=== PATIENT | female | born 1995 | race Hispanic/Latino ===

== ENCOUNTER 2018-01-11 07:11 | Emergency (ER) | payer OTHER ==
[2018-01-11] MEDS: NS 1,000 ML IV (07:48)
[2018-01-11] MEDS: ONDANSETRON 4MG/2ML VIAL (J2405) IV (07:48)
[2018-01-11] MEDS: KETOROLAC 30 MG/ML VIAL (J1885) IV (07:49)
[2018-01-11 07:50] LABS: BASO # 0.1 10^3/uL (0.0-0.2); BASO % 0.5 % (0.0-1.0); EOS % 0.3 % (0.0-3.0); HEMATOCRIT 41.8 % (36.0-47.0); HEMOGLOBIN 14.8 g/dl (12.0-15.5); IMMATURE GRANULOCYTE % 0.4 % (0-3.0); LYMPH # 1.8 10^3/uL (1.5-6.5); LYMPH % 17.5 % (24.0-44.0); MEAN CORPUSCULAR HEMOGLOBIN 32.9 pg (27.0-33.0); MEAN CORPUSCULAR HGB CONC 35.4 g/dl (32.0-36.5); MEAN CORPUSCULAR VOLUME 92.9 fl (80.0-96.0); MONO # 0.8 10^3/uL (0.0-0.8); MONO % 7.5 % (0.0-5.0); NEUTROPHILS # 7.4 10^3/uL (1.8-7.7); NEUTROPHILS % 73.8 % (36.0-66.0); PLATELET COUNT, AUTOMATED 262 10^3/uL (150-450); RED CELL DISTRIBUTION WIDTH 11.4 % (11.5-14.5)
[2018-01-11 08:04] LABS: CONTROL LINE UCG INT CTR LINE PRESENT; INR 0.89; PROTHROMBIN TIME 12.1 SECONDS (12.4-14.5); URINE PREG TEST NEGATIVE (NEGATIVE)
[2018-01-11 08:14] LABS: KETONE, URINE AUTO RFX NEGATIVE (NEGATIVE); LEUKOCYTE ESTERASE UR AUTO RFX NEGATIVE (NEGATIVE); MUCUS, URINE RFX SMALL (NEGATIVE); NITRITE, URINE AUTO RFX NEGATIVE (NEGATIVE); RBC, URINE AUTO RFX 2 /HPF (0-3); SPECIFIC GRAVITY UR AUTO RFX 1.025 (1.002-1.035); SQUAM EPITHELIAL CELL UR AURFX 2 /HPF (0-6); WBC, URINE AUTO RFX 1 /HPF (0-3)
[2018-01-11 08:24] LABS: ALBUMIN 4.1 GM/DL (3.2-5.2); ALKALINE PHOSPHATASE 47 U/L (45-117); ALT/SGPT 76 U/L (12-78); AMYLASE 34 U/L (25-115); ANION GAP 7 MEQ/L (8-16); AST/SGOT 37 U/L (7-37); BILIRUBIN,DIRECT 0.1 MG/DL (0.0-0.2); BILIRUBIN,TOTAL 0.6 MG/DL (0.2-1.0); BLOOD UREA NITROGEN 10 MG/DL (7-18); CARBON DIOXIDE LEVEL 28 MEQ/L (21-32); CHLORIDE LEVEL 104 MEQ/L (98-107); CREATININE FOR GFR 0.66 MG/DL (0.55-1.30); GLOMERULAR FILTRATION RATE > 60.0 (>60); GLUCOSE, FASTING 97 MG/DL (70-100); LIPASE 157 U/L (73-393); POTASSIUM SERUM 3.9 MEQ/L (3.5-5.1); SODIUM LEVEL 139 MEQ/L (136-145); TOTAL PROTEIN 8.2 GM/DL (6.4-8.2)
[2018-01-11] MEDS ORDERED: ISOVUE-370 76% 100ML VIAL (Q9967) As Ordered (08:40)
[2018-01-11] MEDS: GASTROGRAFIN SOLUTION 30ML PO ×2 (08:54→09:21)
[2018-01-11 12:37] LABS: CHLAMYDIA DNA AMPLIFICATION NEGATIVE (NEGATIVE); GC DNA AMPLIFICATION NEGATIVE (NEGATIVE)
== END 2018-01-11 11:21 | disposition home or self-care (01) ==
LOC: M ED 07:11
DX: K52.9 Noninfective gastroenteritis and colitis, unspecified (principal); Z87.42 Personal history of other diseases of the female genital tract
CPT/HCPCS: Q9963

== ENCOUNTER 2018-02-16 22:19 | Emergency (ER) | payer OTHER ==
[2018-02-17] MEDS: AUGMENTIN 875 MG TAB PO (01:21)
== END 2018-02-17 01:15 | disposition home or self-care (01) ==
LOC: M ED 22:19
DX: H66.91 Otitis media, unspecified, right ear (principal)
CPT/HCPCS: 99282

== ENCOUNTER 2019-08-10 11:09 | Inpatient (IN) | payer OTHER ==
[~2019-08-10] VITALS: Ht 149.9 cm; Wt 64.6 kg
[~2019-08-10 11:09] MED LIST: AUGM500T34 PO; FLAG500T PO; NICOTINE 21MG/24HR 1 EA TRANSDERMAL TD SCH
[2019-08-10 12:26] LABS: HEMOGLOBIN 14.8 g/dl (12.0-15.5); MEAN CORPUSCULAR HEMOGLOBIN 32.7 pg (27.0-33.0); MEAN CORPUSCULAR HGB CONC 34.4 g/dl (32.0-36.5); MEAN CORPUSCULAR VOLUME 94.9 fl (80.0-96.0); PLATELET COUNT, AUTOMATED 267 10^3/uL (150-450); RED BLOOD COUNT 4.53 10^6/uL (4.00-5.40)
[2019-08-10 12:43] LABS: AMPHETAMINES LEVEL URINE NEGATIVE (NEGATIVE); BARBITURATES URINE NEGATIVE (NEGATIVE); BENZODIAZEPINES URINE NEGATIVE (NEGATIVE); CANNABINOIDS URINE NEGATIVE (NEGATIVE); COCAINE METABOLITE URINE NEGATIVE (NEGATIVE); METHADONE URINE NEGATIVE (NEGATIVE); OPIATES URINE NEGATIVE (NEGATIVE); PHENCYCLIDINE URINE NEGATIVE (NEGATIVE)
[2019-08-10 12:50] LABS: HCG, SERUM QUALITATIVE NEGATIVE (NEGATIVE)
[2019-08-10] MEDS ORDERED: LEVO75TA34 PO (12:50)
[2019-08-10] MEDS ORDERED: PRAZ2CAP PO (12:50)
[2019-08-10] MEDS ORDERED: CELE100C PO (12:50)
[2019-08-10] MEDS ORDERED: HYDR-643 PO (12:50)
[2019-08-10] MEDS ORDERED: TRAZ-163 PO (12:50)
[2019-08-10] MEDS ORDERED: DOXY100T PO (12:50)
[2019-08-10 12:54] LABS: ACETAMINOPHEN LEVEL < 2.0 UG/ML (10.0-30.0); ALT/SGPT 67 U/L (12-78); BILIRUBIN,DIRECT < 0.1 MG/DL (0.0-0.2); BILIRUBIN,TOTAL 0.3 MG/DL (0.2-1.0); BLOOD UREA NITROGEN 10 MG/DL (7-18); CALCIUM LEVEL 9.5 MG/DL (8.5-10.1); CARBON DIOXIDE LEVEL 26 MEQ/L (21-32); CHLORIDE LEVEL 105 MEQ/L (98-107); CREATININE FOR GFR 0.72 MG/DL (0.55-1.30); ETHYL ALCOHOL (ETHANOL) < 0.003 % (0.000-0.010); GLOMERULAR FILTRATION RATE > 60.0 (>60); GLUCOSE, FASTING 112 MG/DL (70-100); SALICYLATE LEVEL < 1.7 MG/DL (5.0-30.0); SODIUM LEVEL 139 MEQ/L (136-145); TOTAL PROTEIN 7.6 GM/DL (6.4-8.2)
[2019-08-10] MEDS ORDERED: MAALOX 30 ML SUSP *UDC PO PRN (13:45)
[2019-08-10] MEDS ORDERED: traZODone 50 MG TAB PO PRN (13:45)
[2019-08-10] MEDS ORDERED: ACETAMINOPHEN TAB 650MG DOSE (2X325MG) PO PRN (13:45)
[2019-08-10] MEDS ORDERED: MOM 30ML SUSPENSION UDC PO PRN (13:45)
[2019-08-10 14:44] VITALS: BP 114/72
[2019-08-10] MEDS ORDERED: DOXYCYCLINE HYCLATE 100 MG TAB PO ONE (15:45)
[2019-08-10] MEDS ORDERED: hydrOXYzine 10 MG TAB PO PRN (15:45)
[2019-08-10] MEDS: CelecoXIB (CeleBREX) 100 MG CAP PO SCH (16:59)
[2019-08-10 18:00] VITALS: BP 109/69
[2019-08-10] MEDS: traZODone 100 MG TAB PO PRN (20:50)
[2019-08-10] MEDS: PRAZOSIN 1 MG CAP PO SCH (20:50)
[2019-08-11] MEDS: LEVOTHYROXINE 75MCG TABLET (0.075MG) PO SCH (06:09)
[2019-08-11 06:20] VITALS: BP 110/62
[2019-08-11] MEDS: DOXYCYCLINE HYCLATE 100 MG TAB PO SCH ×2 (09:18→20:27)
[2019-08-11] MEDS: CelecoXIB (CeleBREX) 100 MG CAP PO SCH (09:18)
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
[2019-08-11] MEDS ORDERED: hydrOXYzine 25 MG TAB PO PRN (12:15)
[2019-08-11 18:00] VITALS: BP 124/78
[2019-08-11] MEDS: PRAZOSIN 1 MG CAP PO SCH (20:51)
[2019-08-11] MEDS: traZODone 100 MG TAB PO PRN (20:51)
[2019-08-12] MEDS: LEVOTHYROXINE 75MCG TABLET (0.075MG) PO SCH (06:02)
[2019-08-12 06:46] VITALS: BP 101/58
[2019-08-12 07:59] LABS: FREE THYROXINE INDEX 2.5 % (1.3-4.8); THYROID STIMULATING HORMONE 8.38 uIU/ML (0.358-3.740); THYROXINE (T4) 7.8 UG/DL (4.5-12.0)
[2019-08-12] MEDS: CelecoXIB (CeleBREX) 100 MG CAP PO SCH (09:50)
[2019-08-12] MEDS: DOXYCYCLINE HYCLATE 100 MG TAB PO SCH ×2 (09:50→20:43)
--- NOTE | 2019-08-12 10:31 | HPE ---
DATE OF ADMISSION: 08/11/2019 HISTORY OF PRESENT ILLNESS: Please refer to psychiatric history and evaluation for further details on this admission. This examination and history is intended for medical issues, which may need treatment, followup or consultation on this 23-year-old female. ALLERGIES: No known allergies. PRIMARY CARE PROVIDER: [facility]. SOCIAL HISTORY: She is a soldier, active duty at [employer]. She is currently from her but is involved in another relationship. ETOH: Rarely, once every 3 months, if that. Smokes: None. Recreational drug use: None. FAMILY HISTORY: Reviewed with patient and is noncontributary, PAST MEDICAL HISTORY: 1. Hypothyroidism. She states that she was initially placed on 25 mcg of levothyroxine and then they bumped her up to 100, which was too high. In the last several weeks, they have placed her at 50 mcg. 2. Anxiety. 3. Posttraumatic stress disorder (PTSD). 4. Low back pain. She follows with [facility]. She has been told that she has some type of a cyst on her vertebra, good response with Celebrex. PAST SURGICAL HISTORY: 1. [place] teeth extraction. 2. Hysteroscopy on 07/31/2019. She is following this with 7 days of doxycycline 100 mg twice a day, which she has been continuing to receive. HOME MEDICATIONS: - doxycycline 100 mg by mouth twice a day for 7 days LABORATORY STUDIES: CBC is normal. White count is 7.0, hemoglobin 14.4, hematocrit 42.0. Electrolytes were normal. Sodium 138, potassium 3.9, chloride 104, CO2 of 26, BUN 13, creatinine 0.68, nonfasting glucose 101. TSH was 6.95. She is currently on levothyroxine 75 mcg. We will get a thyroid profile. She states that at [facility] they had started her on 25, went to 50, then went up to 100 and that was too much so they switched her back to 75 mcg. She may end up on 87.5. We will get a thyroid profile, it may just have been elevated secondary to stress. REVIEW OF SYSTEMS: 11 systems review was done and was unremarkable, other than chronic back pain, for which she takes Celebrex and goes to the [facility] for. PHYSICAL EXAMINATION: GENERAL: 23-year-old cooperative female in no acute distress. Blood pressure 109/69, pulse 88, respirations 16, temperature 97. The patient is alert and oriented times three. HEENT: Pupils are equal and reactive to light. Extraocular muscles intact. Sclerae clear. Conjunctivae normal. No facial asymmetry. Pharynx, gums and tongue pink and moist. Tongue is midline. NECK: Supple without lymphadenopathy, thyromegaly or goiter. CHEST: Clear to auscultation without wheeze or retraction. HEART: Regular. ABDOMEN: Benign. Bowel sounds positive. GENITOURINARY/RECTAL: Not done. EXTREMITIES: Equal strength, full range of motion. No clubbing, cyanosis, and edema. Peripheral pulses equal and palpable bilaterally. SKIN: Warm and dry. IMPRESSION/PLAN: 1. Psychiatric plan per psychiatry. 2. Deep vein thrombosis (DVT) prophylaxis with early ambulation. 3. Hypothyroidism with slightly elevated TSH. We will get a thyroid profile, may need dose adjustment. 4. Chronic back pain. Continue to followup with [facility]. Continues on Celebrex with good response. 5. Status post hysteroscopy on 07/31/2019. Continue on current course and finishing of doxycycline 100 mg by mouth twice a day. MTDD
[2019-08-12 17:07] VITALS: BP 111/74
[2019-08-12] MEDS: traZODone 100 MG TAB PO PRN (20:43)
[2019-08-12] MEDS: PRAZOSIN 1 MG CAP PO SCH (20:46)
--- NOTE | 2019-08-13 00:39 | MHIPN ---
DATE: 08/12/2019 The patient states "I feel really good." She says she slept good. She is not suicidal. MENTAL STATUS EXAMINATION: She is alert and oriented times 3. Eye contact is fairly good. There is no formal thought disorder noted. She is verbally spontaneous. She says mood is good. Affect is full range and appropriate. She is not psychotic. She denies suicidal or homicidal ideations. Concentration is fair. Memory intact. Insight and judgment are fair. DIAGNOSES: 1. Adjustment disorder with depressed mood. Rule out other specified depressive disorder. 2. History of posttraumatic stress disorder (PTSD). TREATMENT AND PLAN: At this point, we will continue to monitor the patient for continued elevation and stabilization of her mood continue resolution of suicidal ideations; and when stable, we will discharge her with appropriate followup.
[2019-08-13] MEDS: LEVOTHYROXINE 75MCG TABLET (0.075MG) PO SCH (05:56)
[2019-08-13 06:51] VITALS: BP 117/69
[2019-08-13] MEDS: CelecoXIB (CeleBREX) 100 MG CAP PO SCH (09:06)
[2019-08-13] MEDS: DOXYCYCLINE HYCLATE 100 MG TAB PO SCH ×2 (09:06→20:49)
[2019-08-13 15:38] VITALS: BP 106/63
[2019-08-13 21:12] VITALS: BP 131/94
[2019-08-13] MEDS: traZODone 100 MG TAB PO PRN (21:12)
[2019-08-13] MEDS: PRAZOSIN 1 MG CAP PO SCH (21:12)
[2019-08-14] MEDS: LEVOTHYROXINE 75MCG TABLET (0.075MG) PO SCH (05:28)
[2019-08-14 06:04] VITALS: BP 119/76
--- NOTE | 2019-08-14 06:55 | MHIPN ---
DATE OF SERVICE: 08/13/2019 The patient today states that she is feeling very good. She says she slept good. She has no complaints and she is not suicidal. MENTAL STATUS EXAMINATION: Eye contact is good. She is verbally spontaneous. No formal thought disorder noted. Mood is good. Affect full range and appropriate. She is not psychotic, suicidal or homicidal. Concentration and memory is good. Insight and judgment good. DIAGNOSES: Adjustment disorder with depressed mood. Posttraumatic stress disorder (PTSD). TREATMENT PLAN: We will continue to monitor the patient. Will continue elevation and stabilization of her mood and continue resolution of suicidal ideations. KANDACE
[2019-08-14] MEDS: DOXYCYCLINE HYCLATE 100 MG TAB PO SCH (08:56)
[2019-08-14] MEDS: CelecoXIB (CeleBREX) 100 MG CAP PO SCH (08:56)
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
[2019-08-16] MEDS ORDERED: HYDR-643 PO (08:43)
[2019-08-16] MEDS ORDERED: TRAZ-163 PO (08:43)
[2019-08-16] MEDS ORDERED: PRAZ2CAP PO (08:43)
== END 2019-08-14 12:15 | disposition home or self-care (01) | DRG 882 ==
LOC: M ED 11:09 → M ED INP 13:44 → M PSY 14:15
PROVIDERS: ADMIT Psychiatry & Neurology Psychiatry; ATTEND Psychiatry & Neurology Psychiatry
DX: F43.23 Adjustment disorder with mixed anxiety and depressed mood (principal); R45.851 Suicidal ideations; F43.10 Post-traumatic stress disorder, unspecified; Z79.899 Other long term (current) drug therapy; E03.9 Hypothyroidism, unspecified; M54.5 Low back pain

== ENCOUNTER 2020-05-16 08:10 | Inpatient (IN) | payer OTHER ==
[~2020-05-16] VITALS: Ht 149.9 cm; Wt 70.4 kg
[2020-05-16] VITALS (42 sets, daily range): BP systolic 110–180; BP diastolic 57–101
[~2020-05-16 08:10] MED LIST changes: +CELE100C PO; +DOXY100T PO; +HYDR-643 PO; +LEVO75TA34 PO; -NICOTINE 21MG/24HR 1 EA TRANSDERMAL TD SCH; +PRAZ2CAP PO; +TRAZ-257 PO
--- NOTE | 2020-05-16 09:21 | HPEPDOC ---
Obstetrical History & Physical General Date of Admission May 16, 2020 at 08:51 History of Present Illness 24yo at 38+5wks presented to L&D for c/o ctx's that started overnight but w orsened after she thinks her water broke upon getting out of bed at 0700. She denies VB or DFM. Chief Complaint: Contractions, term, LOF, term Information Provided By: Patient Age: 24 : 1 Care Care: Good Care Dating Final EDC: May 25, 2020 Final EDC for Daily Update: May 25, 2020 Final EDC by: LMP (c/w 10w3d u/s) LMP: Jul 23, 2019 EGA at Admission: 38 (+5) Antepartum Course Diagnos(e)s Hypothyroidism Depression Anxiety h/o SI in with inpatient psych admission GBS positive Height (inches): 59 Pre- weight (lbs.): 141 Admission Weight (lbs.): 154 Change in Weight (lbs.): 13 Past Medical History Past Obstetrical History : Past Obstetrical History: [employer] History: No pertinent history Past Medical History Medical History Hypothyroidism Anxiety Depression h/o SI in Surgical History: Denies/None Family History Significant Family History: Diabetes Social History Marital Status: Single (FOB involved) Psychosocial History: Anxiety, Depression, Prior suicide attempt * Smoker: non-smoker Alcohol: Denies Drugs: denies Abuse Violence Screening Have you been hit/kicked/slapp: No Have you been sexually assault: No Imunizations Tdap status: current ([id number]) Influenza Status: current () Allergies Coded Allergies: No Known Allergies (Unverified , 08/10/19) Medications Scheduled Levothyroxine Sodium (Levothyroxine Sodium) 100 Mcg Tablet, 100 MCG PO DAILY No.137/Iron/Folic Acd ( Vitamin Tablet) 1 Each Tablet, 1 TAB PO DAILY Physical Examination Physical Examination GENERAL: Alert and oriented times three. HEENT: NC/AT, airway patent and self-maintained ABDOMEN: Gravid and non-tender to touch. FETUS: Is vertex (VTX) by sterile vaginal examination (SVE), fetus is vertex (VTX) by Emery. CARDS: well-perfused, no edema RESP: no exaggerated respiratory effort appreciated SVE: 3/c/-2, membranes palpated to be intact. Neg pooling, neg valsalva on speculum exam. Bloody-show with SVE. EXTREMITIES: No edema. Vital Signs/I&O Normotensive, afebrile. NST cat I but no accels noted [place]: ctx's q2-3min Laboratory Data Urine Culture: No Growth Pertinent Laboratoy Data Blood Type: AB+ RBC Antibody Screen: Negative HIV: Negative Hepatitis B: Negative Rapid Plasma Reagin: Nonreactive Rubella: Immune Varicella: Immune Chlamydia/Gonorrhea: Negative Group B Streptococcus: Positive Quad Screen Test: Declined Cystic Fibrosis: Negative Glucose Tolerance Test: 171 (unable to tolerate 3hr, 2 weeks of QID FS normal) Anatomy Ultrasound Ultrasound Date: Jan 08, 2020 Placenta Location: Anterior Normal Anatomy: Yes Placenta Previa: No Other Ultrasounds [id number] - Growth scan at 34+5wks with EFW at 65th percentile Vaginal Examination Dilation: 3 cm Effacement: 100% Station: -1 Cervical Consistency: Soft Cervical Position: Anterior Presentation: Cephalic presentation Assessment Heart Rate (FHR): 140 Variability: Moderate Accelerations: None Decelerations: None Tocometer Contractions: Yes Frequency: regular, every 2-5 min. Duration: greater than 60 seconds Strength: palpated as moderate Multi-drug resistant Organism: No history of MDRO Assessment/Plan Assessment 24yo at 38+5wks presenting for c/o ctx's and LOF. Membranes appreciated to be intact with negative nitrazine, neg pooling, neg valsalva, and palpation of intact membranes on exam. SVE 3/c/-1 with bloody show noted. Patient in labor. EFW 3300g. GBS positive. Plan Admit to L&D Mortising Machine Operator and consent CBC, T&S Synthroid 100mcg PO daily (first dose now) PCN for GBS positive status Patient may have epidural if desired Continuous EFM until delivery Clear liquid diet until delivery Consider AROM for augmentation once patient comfortable with epidural Plan for expectant ZIA KING DO May 16, 2020 09:21
[2020-05-16] MEDS ORDERED: LEVO100T5 PO (09:28)
[2020-05-16] MEDS ORDERED: PRENTAB9 PO (09:28)
[2020-05-16] MEDS ORDERED: PENICILLIN G POTASSIUM 5 MU VIAL As Ordered ONE (09:39)
[2020-05-16 10:16] LABS: BASO % 0.5 % (0.0-1.0); EOS % 0.5 % (0.0-3.0); HEMATOCRIT 34.3 % (36.0-47.0); HEMOGLOBIN 12.4 g/dl (12.0-15.5); LYMPH # 1.3 10^3/uL (1.5-5.0); LYMPH % 19.4 % (24.0-44.0); MEAN CORPUSCULAR HEMOGLOBIN 32.7 pg (27.0-33.0); MEAN CORPUSCULAR HGB CONC 36.2 g/dl (32.0-36.5); MEAN CORPUSCULAR VOLUME 90.5 fl (80.0-96.0); MONO # 0.5 10^3/uL (0.0-0.8); MONO % 8.3 % (0.0-5.0); NEUTROPHILS # 4.6 10^3/uL (1.5-8.5); NEUTROPHILS % 70.5 % (36.0-66.0); PLATELET COUNT, AUTOMATED 190 10^3/uL (150-450); RED BLOOD COUNT 3.79 10^6/uL (4.00-5.40); WHITE BLOOD COUNT 6.5 10^3/uL (4.0-10.0)
[2020-05-16] MEDS ORDERED: FENTANYL 2MCG/ML ROPIVACAINE 0.2% IN 0.9% NACL 100ML IVBAG As Ordered ONE (13:47)
[2020-05-16] MEDS: FENTANYL/ROPIVACAINE/NACL BAG 100 ML EPIDURAL SCH (14:12)
--- NOTE | 2020-05-16 14:39 | IPNPDOC ---
Obstetrical Progress Note Date of Service May 16, 2020 Subjective Patient feeling increased pain with ctx's and requested epidural. She requested to receive epidural prior to AROM. Objective Vital Signs Date Time Temp Pulse Resp B/P (MAP) Pulse Ox O2 Delivery O2 Flow Rate FiO2 05/16/20 09:03 102 18 130/81 (97) Assessment Heart Rate (FHR): 135 Variability: Moderate Accelerations: Present Decelerations: None Heart Rate Tracing: Category I Tocometer Contractions: Yes Frequency: every 2-5 min. Duration: greater than 60 seconds Sterile Vaginal Examination Dilation: 4 cm Effacement (%): 100% Station: -1 Cervical Consistency: Soft Cervical Position: Anterior Postion/Presentation: Cephalic presentation Assessment and Plan Status: Reassuring Group B Streptococcus: Positive (received PCN x2 doses) Anticipate: Vaginal Delivery Additional Comments 24yo at 38+5wks admitted for labor with non-reactive NST. Patient has progressed to now 4/c/-1. Patient allowed to receive epidural. Once patient was comfortable and informed consent obtained, AROM performed notable for clear fluid. FHRT cat I. Patient has made small cervical change on maternal effort alone. Will continue to monitor closely. Plan to use positional changes with peanut ball. If progress slows, will senior counsel commercial patient about pitocin protocol. Plan for expectant . Patient desires to proceed, safe to continue. ZIA KING DO May 16, 2020 14:39
[2020-05-16] MEDS ORDERED: EPIDURAL COMMENT XX SCH (17:00)
[2020-05-16] MEDS ORDERED: REFRIGERATOR IV KEYS XX PRN (17:00)
[2020-05-16] MEDS ORDERED: ePHEDrine SULFATE 25 MG/5 ML(5MG/ML) SYRINGE IV PRN (17:00)
[2020-05-16] MEDS ORDERED: NALOXONE INJ 0.4MG/1ML VIAL (J2310 PER 1MG) IV PRN (17:00)
[2020-05-16] MEDS ORDERED: EPIDURAL/PCA KEYS XX PRN (17:00)
[2020-05-16] MEDS ORDERED: LACTATED RINGER'S 1000 ML IV PRN (17:00)
[2020-05-16] MEDS ORDERED: diphenhydrAMINE 50MG/ML VIAL (J1200) IV PRN (17:00)
[2020-05-16] MEDS ORDERED: ONDANSETRON 4MG/2ML VIAL IV PRN (17:00)
--- NOTE | 2020-05-16 20:30 | IPNPDOC ---
Obstetrical Progress Note Date of Service May 16, 2020 Subjective Patient tearful in bed expressing frustration with lack of progress. She endorses feeling abdominal pressure but denies pain. Objective Vital Signs Date Time Temp Pulse Resp B/P (MAP) Pulse Ox O2 Delivery O2 Flow Rate FiO2 05/16/20 18:25 70 139/82 (101) 05/16/20 18:08 98.2 18 Assessment Heart Rate (FHR): 130 Variability: Moderate Accelerations: None Decelerations: None Heart Rate Tracing: Category I Tocometer Contractions: Yes Frequency: every 2-5 min. Sterile Vaginal Examination Dilation: 4 cm Effacement (%): 100% Station: -1 Cervical Consistency: Soft Cervical Position: Middle Postion/Presentation: Cephalic presentation Assessment and Plan Status: Reassuring Group B Streptococcus: Positive Anticipate: Vaginal Delivery Additional Comments 24yo at 38+5wks admitted for labor with nonreactive NST. Patient tolerated AROM of clear fluid. No cervical change despite AROM. IUPC and FSE placed demonstrating inadequate ctx's with FHRT cat I. Patient counseled on my recommendation to start pitocin protocol for augmentation of labor due to lack of progress. We also discussed concern FHRT that although at this time is cat I, she has had periods of cat II with minimal variability and she did have 1 prolonged decel lasting 2 minutes that responded to positional change. If fetus is unable to tolerate augmentation of labor then will need to discuss option of section. Patient acknowledged understanding. I left the room to attend to other patients and upon my return 2 hours later, pitocin had not yet been started due to patient refusal per RN. Patient rechecked and no cervical change noted. IUPC replaced. We discussed why recommendation of pitocin was given. I advised patient that is her right to decline medical therapy but that I wanted to ensure she was aware that by not augmenting labor in the setting of no cervical change could still lead to . Patient acknowledged understanding. Patient then requested to start pitocin protocol, will start at 2mU/min now and titrate per protocol. All questions answered. Approximately 25 minutes spent counseling patient at the bedside. ZIA KING DO May 16, 2020 20:30
[2020-05-17] VITALS (15 sets, daily range): BP systolic 102–157; BP diastolic 55–81
[2020-05-17] MEDS: FENTANYL/ROPIVACAINE/NACL BAG 100 ML EPIDURAL SCH (00:31)
--- NOTE | 2020-05-17 00:54 | IPNPDOC ---
Obstetrical Progress Note Date of Service May 17, 2020 Subjective Patient having nausea and vomiting. She endorses pelvic pressure. Desires SVE. Objective Vital Signs Date Time Temp Pulse Resp B/P (MAP) Pulse Ox O2 Delivery O2 Flow Rate FiO2 05/16/20 21:56 98.1 57 129/67 (87) 05/16/20 18:08 18 Assessment Heart Rate (FHR): 140 Variability: Moderate Accelerations: None Decelerations: Early, Intermittent Heart Rate Tracing: Category I Tocometer Contractions: Yes Frequency: every 2-2 min. Strength: other (MVUs 140-170) Sterile Vaginal Examination Dilation: 6 cm Effacement (%): 100% Station: 0 Cervical Consistency: Soft Cervical Position: Anterior Postion/Presentation: Cephalic presentation Assessment and Plan Status: Reassuring Group B Streptococcus: Positive Anticipate: Vaginal Delivery Additional Comments 24yo at 38+6wks admitted for latent labor with non-reactive NST now progressing on pitocin protocol with cervical change appreciated. -Zofran for nausea/vomiting -Continue pitocin protocol -Close monitoring for expectant All questions answered. ZIA KING DO May 17, 2020 00:54
[2020-05-17] MEDS ORDERED: ceFAZolin 2 GM/D5W 50 ML IV BAG (J0690 PER 500MG) As Ordered ONE (06:34)
[2020-05-17] MEDS ORDERED: AZITHROMYCIN INJ 500MG VIAL (J0456 PER 500MG) As Ordered ONE (06:34)
[2020-05-17] MEDS ORDERED: ONDANSETRON 4MG/2ML VIAL As Ordered ONE (06:41)
[2020-05-17] MEDS ORDERED: MORPHINE PRES-FREE INJ 10 MG/10 ML VIAL (J2274) As Ordered ONE (06:41)
[2020-05-17] MEDS ORDERED: OXYTOCIN INJ 10 UNITS/ML VIAL (J2590) As Ordered ONE (06:41)
--- NOTE | 2020-05-17 06:45 | IPNPDOC ---
Obstetrical Progress Note Date of Service May 17, 2020 Subjective Patient reporting nausea and vomiting and pelvic pain with ctx's. Objective Vital Signs Date Time Temp Pulse Resp B/P (MAP) Pulse Ox O2 Delivery O2 Flow Rate FiO2 05/17/20 04:56 99.2 71 118/67 (84) 05/16/20 18:08 18 Assessment Heart Rate (FHR): 140 Variability: Moderate Accelerations: None Decelerations: None Tocometer Contractions: Yes Frequency: every 2-5 min. Strength: other (MVUs 140-170) Sterile Vaginal Examination Dilation: 6 cm Effacement (%): 100% Station: 0 Cervical Consistency: Soft Cervical Position: Anterior Postion/Presentation: Cephalic presentation Assessment and Plan Status: Reassuring Group B Streptococcus: Positive Anticipate: Section Additional Comments Patient has made no cervical change coordinator the last 6 hours with inadequate MVUs despite pitocin protocol. head asynclitic and LOP now with caput. Patient counseled on my diagnosis of arrest of dilation with recommendation to proceed with section. Patient was counseled on the r/b/a/i of section, acknowledged understanding with written consents signed desiring to proceed. All questions answered. ZIA KING DO May 17, 2020 06:45
[2020-05-17] MEDS ORDERED: diphenhydrAMINE 50MG/ML VIAL (J1200) IV PRN (07:00)
[2020-05-17] MEDS ORDERED: METOCLOPRAMIDE INJ 10MG/2ML VIAL (J2765 PER 1) IV PRN (07:00)
[2020-05-17] MEDS ORDERED: NALBUPHINE HCL 10 MG/ML AMP (J2300) IV PRN (07:00)
[2020-05-17] MEDS ORDERED: NALOXONE INJ 0.4MG/1ML VIAL (J2310 PER 1MG) IV PRN ×2 (07:00)
[2020-05-17] MEDS ORDERED: ONDANSETRON 4MG/2ML VIAL IV PRN ×2 (07:00→08:30)
[2020-05-17] MEDS ORDERED: dexameTHASONE 4 MG/ML 1ML VIAL (J1100 PER 1MG) As Ordered ONE (07:14)
[2020-05-17] MEDS ORDERED: fentaNYL 100 MCG/2 ML INJECTION (J3010) As Ordered ONE (07:20)
[2020-05-17] MEDS ORDERED: PHENYLephrine HCL 500 MCG/5 ML (100MCG/ML) SYRINGE (J2370) As Ordered ONE (07:23)
[2020-05-17] MEDS ORDERED: KETOROLAC 60MG 2ML VIAL As Ordered ONE (07:39)
[2020-05-17] MEDS ORDERED: MEASLES,MUMPS,RUBELLA VACCINE INJ (MMR-II) (90707) SC SCH (07:45)
[2020-05-17] MEDS ORDERED: RHOGAM 300 MCG (1500 IU) INJ (J2790) IM SCH (07:45)
[2020-05-17] MEDS ORDERED: PROMETHAZINE 25 MG TAB PO PRN (07:45)
[2020-05-17] MEDS ORDERED: fentaNYL 100 MCG/2 ML INJECTION (J3010) IV PRN (08:30)
[2020-05-17] MEDS: PRENATAL VITAMINS CHEWABLE TABLET PO SCH (09:00)
[2020-05-17] MEDS: KETOROLAC 30 MG/ML 1ML VIAL IV SCH ×2 (13:53→20:00)
[2020-05-17] MEDS: DOCUSATE SODIUM 100 MG CAP PO SCH (20:00)
--- NOTE | 2020-05-17 22:04 | ROOPDOC ---
[facility] Report Of Operation Report of Operation DATE OF PROCEDURE: 05/17/20 PREPROCEDURE DIAGNOSES: Arrest of dilation, 38 weeks gestation, POSTPROCEDURE DIAGNOSES: Arrest of dilation, 38 weeks gestation, cephalopelvic disproportion PROCEDURE: Primary Low Transverse Section SURGEON: Dr. Zia King D.O. BAKERY SALES CLERK: Dr. Shaji James MD ANESTHESIA: Spinal. ESTIMATED BLOOD LOSS: 600 mL. FLUIDS: LR 1000 mL URINE OUTPUT: 200 mL COMPLICATIONS: None. INDICATIONS: 24yo at 38+4wks admitted in latent labor for nonreactive NST with no cervical change despite pitocin augmentation. FINDINGS: Normal uterus, bilateral fallopian tubes and ovaries, female infant in cephalic presentation in LOP position with asynclitism, weight 3xwr5nd or 3700g, APGARS 8/9, clear fluid on amniotomy. No nuchal/foot/body cord noted. DESCRIPTION OF PROCEDURE: The patient was counseled on the risks, benefits, indications, and alternatives of section and informed consent obtained with written consents signed. The patient received 500m of Azithromycin and 2gm of Ancef enroute to the operating room. The patient was taken to the operating room where epidural anesthesia was determined to be inadequate. Spinal anesthesia was obtained and determined to be adequate. The patient was then prepped and draped in sterile fashion in the dorsal supine position with a leftward tilt. A Pfannenstiel skin incision was the made with the scalpel and carried through to the underlying layer of fascia. The fascia was incised in the midline with the scalpel and the incision extended laterally with blunt dissection. The rectus muscles were then in the midline and the peritoneum entered bluntly. The peritoneal incision was extended superiorly and inferiorly with good visualization of the bladder. The Mobius self-retaining retractor was then placed into the abdomen. The vesicouterine peritoneum was incised with the scalpel and a bladder flap created digitally. The lower uterine segment was incised in a transverse fashion with the scalpel. The uterine incision was then extended laterally with blunt dissection. Amniotomy was notable for clear fluid. The 's head was then delivered atraumatically through the hysterotomy followed by the shoulders and body without difficulty. The was dried on delivery field with vigorous cry appreciated. After 30 seconds of delayed cord clamping, the three vessel cord was clamped x2 and cut by provider. The infant was handed off to the awaiting pediatrics team. Cord blood sample obtained. The placenta was then manually expressed and pitocin IV bolus initiated. The uterus was cleared of all clots, trailing membranes, and debris. The hysterotomy was repaired using 0-Monocryl in running, locking fashion. A second embricating layer was reapproximated using 0-Monocryl. The hysterotomy was appreciated to be hemostatic. The fascia was closed using 0-Vicryl in a running, non-locking fashion. Irrigation was performed. 3-0 vicryl was used to reapproximate the subcutaneous layer. The skin was then closed with 4-0 monocryl in a subcuticular fashion. The incision was then dressed with steri strips and a pressure dressing. A vaginal sweep was performed and hemostasis was noted. The patient tolerated the procedure well. Surgical instrument count was correct x2. The patient was taken to the PACU in stable condition. ZIA KING DO May 17, 2020 22:00
[2020-05-18] VITALS (11 sets, daily range): BP systolic 120–176; BP diastolic 57–94
[2020-05-18] MEDS: KETOROLAC 30 MG/ML 1ML VIAL IV SCH (02:14)
[2020-05-18] MEDS: PRENATAL VITAMINS CHEWABLE TABLET PO SCH (09:08)
[2020-05-18] MEDS: IBUPROFEN 800 MG TAB PO SCH ×2 (09:08→19:40)
[2020-05-18] MEDS: DOCUSATE SODIUM 100 MG CAP PO SCH ×2 (09:08→20:26)
[2020-05-18] MEDS: PERCOCET 5MG/325MG TAB PO PRN ×2 (16:54→23:15)
[2020-05-18 17:25] LABS: HEMATOCRIT 25.8 % (36.0-47.0); MEAN CORPUSCULAR HEMOGLOBIN 31.8 pg (27.0-33.0); MEAN CORPUSCULAR HGB CONC 34.9 g/dl (32.0-36.5); MEAN CORPUSCULAR VOLUME 91.2 fl (80.0-96.0); PLATELET COUNT, AUTOMATED 169 10^3/uL (150-450); RED BLOOD COUNT 2.83 10^6/uL (4.00-5.40); WHITE BLOOD COUNT 7.9 10^3/uL (4.0-10.0)
[2020-05-18 17:57] LABS: ALBUMIN 2.2 GM/DL (3.2-5.2); ALT/SGPT 30 U/L (12-78); BILIRUBIN,TOTAL 0.3 MG/DL (0.2-1.0); BLOOD UREA NITROGEN 8 MG/DL (7-18); CALCIUM LEVEL 8.8 MG/DL (8.5-10.1); CARBON DIOXIDE LEVEL 27 MEQ/L (21-32); CHLORIDE LEVEL 108 MEQ/L (98-107); CREATININE FOR GFR 0.63 MG/DL (0.55-1.30); GLOMERULAR FILTRATION RATE > 60.0 (>60); GLUCOSE, FASTING 105 MG/DL (70-100); POTASSIUM SERUM 2.6 MEQ/L (3.5-5.1); SODIUM LEVEL 143 MEQ/L (136-145); TOTAL PROTEIN 4.8 GM/DL (6.4-8.2)
[2020-05-18] MEDS ORDERED: POTASSIUM CHLORIDE 10 MEQ SR TABLET PO ONE (18:15)
[2020-05-18] MEDS ORDERED: hydrALAZINE 20MG/ML 1ML VIAL (J0360 PER 20MG) IV ONE ×3 (18:30→19:00)
[2020-05-18] MEDS ORDERED: MAG Sulf (L&D) 4 GM/100 ML 4 GM in IV 1 EA IV ONE (18:30)
[2020-05-18] MEDS ORDERED: hydrALAZINE 20MG/ML 1ML VIAL (J0360 PER 20MG) As Ordered ONE (18:31)
[2020-05-18] MEDS ORDERED: MAGNESIUM SULFATE 4% INJ 20GM/500ML (40MG/ML) As Ordered ONE (18:59)
[2020-05-18] MEDS ORDERED: MAGNESIUM *L&D* 4GM/100ML BAG (40MG/ML) As Ordered ONE (18:59)
--- NOTE | 2020-05-18 19:20 | IPNPDOC ---
Progress Note Date of Service: May 18, 2020 Day#: 1 Progress Note SUBJECT: Ms. Manning is a 24yo POD1 s/p PLTCD at term. Early today on VS review I noted intermittent mild range BPs and ordered pre-eclampsia labs. On return of labs hypokalemia was noted at 2.6 and 40meq PO KCl was ordered. On VS retake at this time the patient had a severe range BP which was persistent on 15 min repeat. 5mg hydralazine was given and 20 minute repeat BP was mild range. The patient denied n/v/d, cp, sob, chin, visual changes, RUQ pain, f/c, heavy vaginal bleeding, or urinary symptoms. She is without issue and her pain is well controlled. APC - pre-eclampsia with severe features - hypothyroidism on 100mcg synthroid - depression/anxiety (history of SI) OBJECTIVE: VITAL SIGNS: per above, other than BP WNL Alert and oriented times three. Breath sounds clear to auscultation. Heart rate: Regular rate and rhythm, no murmurs, rubs or gallops. Abdomen: Fundus firm at U-2. Soft, NTTP. [Minimal] lochia. Extremities: BL LE with +1 pitting edema, UE/LE with hyperreflexia, no clonus, neg homans ASSESSMENT: Ms. Manning is a 24yo POD1 s/p PLTCD at term now with pre-eclampsia with severe features based on severe range BP requiring 5mg IV hydralazine for control. Otherwise she has normal VS and good UOP. On exam she has hyperreflexia and +1 BL LE pitting edema. She denied symptoms pre-eclampsia. She has normal LFT/Cr/PLT. She has hypokelamia for which she took 40meq of KCl. PLAN: - started 4mg Mg bolus and 2g/h with plan to continue for 24h - will provide IV antihypertensives for persistent severe range BPs - clear liquid diet - bedside comode - routine Mg checks - plan for repeat K as well as CBC/CMP in 6h from last, will DC trend if normal - continue synthroid 100mcg/d for hypothyroidism - continue current pain control regimen - adding lovenox 40mg/d for DVT prophylaxis (risk factors - obesity, post- operative, pre-eclampsa) VS, I&O, 24H, Harinder Vital Signs/I&O Vital Signs Date Time Temp Pulse Resp B/P (MAP) Pulse Ox O2 Delivery O2 Flow Rate FiO2 05/18/20 18:00 98.0 63 18 168/79 (108) 99 05/18/20 14:00 Room Air I&O- Last 24 Hours up to 6 AM 05/18/20 06:00 Intake Total 400 ml Output Total 3525 ml Balance -3125 ml Laboratory Data 24H LABS Laboratory Tests 2 05/18/20 16:30: Nucleated Red Blood Cells % (auto) 0.0, Anion Gap 8, Glomerular Filtration Rate > 60.0, Calcium Level 8.8, Total Bilirubin 0.3, Aspartate Amino Transf (AST/SGOT) 34, Alanine Aminotransferase (ALT/SGPT) 30, Alkaline Phosphatase 87, Total Protein 4.8L, Albumin 2.2L, Albumin/Globulin Ratio 0.8L CBC/BMP Laboratory Tests 05/18/20 16:30 IZABELA OROPEZA DO May 18, 2020 19:20
[2020-05-18] MEDS: MAG Sulf (OBGYN) 20GM/500ML 20,000 MG in IV 1 EA IV SCH (19:37)
[2020-05-18] MEDS: ENOXAPARIN 40MG/0.4ML SYRINGE (J1650 PER 10MG) SC SCH (19:45)
[2020-05-18] MEDS ORDERED: LR 1,000 ML IV SCH (21:45)
[2020-05-19] VITALS (26 sets, daily range): BP systolic 112–176; BP diastolic 73–100
[2020-05-19 00:10] LABS: HEMATOCRIT 30.2 % (36.0-47.0); HEMOGLOBIN 10.6 g/dl (12.0-15.5); MEAN CORPUSCULAR HEMOGLOBIN 31.8 pg (27.0-33.0); MEAN CORPUSCULAR HGB CONC 35.1 g/dl (32.0-36.5); MEAN CORPUSCULAR VOLUME 90.7 fl (80.0-96.0); PLATELET COUNT, AUTOMATED 169 10^3/uL (150-450); RED BLOOD COUNT 3.33 10^6/uL (4.00-5.40); WHITE BLOOD COUNT 8.7 10^3/uL (4.0-10.0)
[2020-05-19 00:32] LABS: ALBUMIN 2.5 GM/DL (3.2-5.2); ALT/SGPT 29 U/L (12-78); BILIRUBIN,TOTAL 0.5 MG/DL (0.2-1.0); BLOOD UREA NITROGEN 5 MG/DL (7-18); CALCIUM LEVEL 7.8 MG/DL (8.5-10.1); CARBON DIOXIDE LEVEL 26 MEQ/L (21-32); CHLORIDE LEVEL 105 MEQ/L (98-107); CREATININE FOR GFR 0.48 MG/DL (0.55-1.30); GLOMERULAR FILTRATION RATE > 60.0 (>60); GLUCOSE, FASTING 77 MG/DL (70-100); POTASSIUM SERUM 2.7 MEQ/L (3.5-5.1); SODIUM LEVEL 139 MEQ/L (136-145)
[2020-05-19] MEDS ORDERED: POTASSIUM CHLORIDE 10 MEQ SR TABLET PO ONE ×3 (01:15→15:00)
--- NOTE | 2020-05-19 01:15 | IPNPDOC ---
Progress Note Date of Service: May 19, 2020 Day#: 2 Progress Note SUBJECT: Ms. Manning is a 24yo POD2 s/p PLTCD at term with pre- eclampsia with severe features currently on Mg also with hypokalemia. Her BPs have been normotensive to mild range, she has had 1 severe range with a mild range repeat. She denies any symptoms. Initial pre-e labs were normal with exception of potassium She recieved 40meq KCl PO without change in her K on 6h repeat. Per suggestion of internal medicine will start on more tailored K repletion regimen per below. APC - pre-eclampsia with severe features - hypothyroidism on 100mcg synthroid - depression/anxiety (history of SI) PLAN: - Mg 2g/h with plan to continue for 24h - will provide IV antihypertensives for persistent severe range BPs - clear liquid diet - bedside comode - routine Mg checks - plan for repeat K as well as CBC/CMP at 0600, will DC trend if normal - giving 40 additional meq KCl PO as well as 10meq KCl x4 for hypokalemia - continue synthroid 100mcg/d for hypothyroidism - continue current pain control regimen - continue lovenox 40mg/d for DVT prophylaxis (risk factors - obesity, post- operative, pre-eclampsa) VS, I&O, 24H, Fishbone Vital Signs/I&O Vital Signs Date Time Temp Pulse Resp B/P (MAP) Pulse Ox O2 Delivery O2 Flow Rate FiO2 05/19/20 00:19 77 148/92 (110) 05/18/20 23:15 17 05/18/20 18:00 98.0 99 05/18/20 14:00 Room Air I&O- Last 24 Hours up to 6 AM 05/19/20 06:00 Intake Total 3726.9 ml Output Total 4650 ml Balance -923.1 ml Laboratory Data 24H LABS Laboratory Tests 2 05/18/20 16:30: Nucleated Red Blood Cells % (auto) 0.0, Anion Gap 8, Glomerular Filtration Rate > 60.0, Calcium Level 8.8, Total Bilirubin 0.3, Aspartate Amino Transf (AST/SGOT) 34, Alanine Aminotransferase (ALT/SGPT) 30, Alkaline Phosphatase 87, Total Protein 4.8L, Albumin 2.2L, Albumin/Globulin Ratio 0.8L 05/18/20 23:46: Nucleated Red Blood Cells % (auto) 0.0, Anion Gap 8, Glomerular Filtration Rate > 60.0, Calcium Level 7.8L, Total Bilirubin 0.5#, Aspartate Amino Transf (AST/SGOT) 32, Alanine Aminotransferase (ALT/SGPT) 29, Alkaline Phosphatase 96, Total Protein 6.0#L, Albumin 2.5L, Albumin/Globulin Ratio 0.7L CBC/BMP Laboratory Tests 05/18/20 16:30 05/18/20 23:46 IZABELA OROPEZA DO May 19, 2020 01:15
[2020-05-19] MEDS: KCL 10MEQ/100ML SWI (KRUN) 10 MEQ in IV 1 EA IV SCH ×4 (01:49→04:15)
[2020-05-19] MEDS: IBUPROFEN 800 MG TAB PO SCH ×3 (01:59→18:05)
[2020-05-19] MEDS: MAG Sulf (OBGYN) 20GM/500ML 20,000 MG in IV 1 EA IV SCH ×2 (04:24→13:56)
[2020-05-19] MEDS: LEVOTHYROXINE 100MCG TABLET (0.1MG) PO SCH (06:09)
[2020-05-19] MEDS: PERCOCET 5MG/325MG TAB PO PRN (06:54)
[2020-05-19] MEDS: PRENATAL VITAMINS CHEWABLE TABLET PO SCH (07:46)
[2020-05-19] MEDS: DOCUSATE SODIUM 100 MG CAP PO SCH ×2 (07:46→22:52)
[2020-05-19 07:58] LABS: HEMATOCRIT 28.2 % (36.0-47.0); HEMOGLOBIN 10.1 g/dl (12.0-15.5); MEAN CORPUSCULAR HEMOGLOBIN 32.6 pg (27.0-33.0); MEAN CORPUSCULAR HGB CONC 35.8 g/dl (32.0-36.5); PLATELET COUNT, AUTOMATED 173 10^3/uL (150-450); WHITE BLOOD COUNT 6.7 10^3/uL (4.0-10.0)
[2020-05-19] MEDS ORDERED: ENOXAPARIN 40MG/0.4ML SYRINGE (J1650 PER 10MG) SC SCH (09:00)
[2020-05-19] MEDS ORDERED: NIFEdipine 30 MG XL TAB PO SCH (09:00)
[2020-05-19 09:02] LABS: ALBUMIN 2.6 GM/DL (3.2-5.2); ALT/SGPT 31 U/L (12-78); BILIRUBIN,TOTAL 0.5 MG/DL (0.2-1.0); BLOOD UREA NITROGEN 3 MG/DL (7-18); CALCIUM LEVEL 7.1 MG/DL (8.5-10.1); CARBON DIOXIDE LEVEL 26 MEQ/L (21-32); CHLORIDE LEVEL 108 MEQ/L (98-107); CREATININE FOR GFR 0.42 MG/DL (0.55-1.30); GLOMERULAR FILTRATION RATE > 60.0 (>60); GLUCOSE, FASTING 87 MG/DL (70-100); POTASSIUM SERUM 2.9 MEQ/L (3.5-5.1); SODIUM LEVEL 143 MEQ/L (136-145); TOTAL PROTEIN 5.4 GM/DL (6.4-8.2)
--- NOTE | 2020-05-19 09:46 | IPNPDOC ---
Progress Note Date of Service: May 19, 2020 Day#: 2 Progress Note SUBJECT: Ms. Manning is a 24yo POD2 s/p PLTCD at term with pre- eclampsia with severe features currently on Mg and with hypokelamia resistant to KCl IV/PO repletion regimen overnight. Overnight she had a couple severe range BPs that were mild range on repeat not requiring IV medications. She was started on nifedipine XR 30mg/d this morning. The patient denied n/v/d, cp, sob, chin, visual changes, RUQ pain, f/c, heavy vaginal bleeding, or urinary symptoms. She is without issue and her pain is well controlled. APC - pre-eclampsia with severe features - hypothyroidism on 100mcg synthroid - depression/anxiety (history of SI) OBJECTIVE: VITAL SIGNS: per above, other than BP WNL Alert and oriented times three. Breath sounds clear to auscultation. Heart rate: Regular rate and rhythm, no murmurs, rubs or gallops. Abdomen: Fundus firm at U-2. Soft, NTTP. [Minimal] lochia. Extremities: BL LE with +1 pitting edema, UE/LE with hyperreflexia, no clonus, neg homans ASSESSMENT: SUBJECT: Ms. Manning is a 24yo POD2 s/p PLTCD at term with pre-eclampsia with severe features currently on Mg and with hypokelamia resistant to KCl IV/PO repletion regimen overnight. Overnight she had a couple severe range BPs that were mild range on repeat not requiring IV medications. She was started on nifedipine XR 30mg/d this morning. She is diuresing well. On exam she has hyperreflexia and +1 BL LE pitting edema. She denied symptoms pre- eclampsia. She has normal LFT/Cr/PLT this morning. PLAN: - continue Mg 2g/h for seizure prevention for 24h (off at 1900 tonight) - will provide IV antihypertensives for persistent severe range BPs - clear liquid diet - bedside comode - routine Mg checks - consult placed to hospitalists for management of hypokalemia reistant to repletion overnight, suspect due to fluid overload secondary to pre-eclamptic state but would appreciate recommendations for management and assistance in ruling out other possible etiologies - continue synthroid 100mcg/d for hypothyroidism - continue current pain control regimen - continue lovenox 40mg/d for DVT prophylaxis (risk factors - obesity, post- operative, pre-eclampsa) - continue nifedipine XR 30mg/d for BP control, consider increasing to 60mg/d if BP still 150/100s on average this afternoon VS, I&O, 24H, Harinder Vital Signs/I&O Vital Signs Date Time Temp Pulse Resp B/P (MAP) Pulse Ox O2 Delivery O2 Flow Rate FiO2 05/19/20 09:02 90 18 154/96 (115) 05/19/20 07:59 Room Air 05/19/20 07:45 97.4 05/18/20 18:00 99 I&O- Last 24 Hours up to 6 AM 05/19/20 06:00 Intake Total 8279.7 ml Output Total 9000 ml Balance -720.3 ml Laboratory Data 24H LABS Laboratory Tests 2 05/18/20 16:30: Nucleated Red Blood Cells % (auto) 0.0, Anion Gap 8, Glomerular Filtration Rate > 60.0, Calcium Level 8.8, Total Bilirubin 0.3, Aspartate Amino Transf (AST/SGOT) 34, Alanine Aminotransferase (ALT/SGPT) 30, Alkaline Phosphatase 87, Total Protein 4.8L, Albumin 2.2L, Albumin/Globulin Ratio 0.8L 05/18/20 23:46: Nucleated Red Blood Cells % (auto) 0.0, Anion Gap 8, Glomerular Filtration Rate > 60.0, Calcium Level 7.8L, Total Bilirubin 0.5#, Aspartate Amino Transf (AST/SGOT) 32, Alanine Aminotransferase (ALT/SGPT) 29, Alkaline Phosphatase 96, Total Protein 6.0#L, Albumin 2.5L, Albumin/Globulin Ratio 0.7L 05/19/20 07:36: Nucleated Red Blood Cells % (auto) 0.0, Anion Gap 9, Glomerular Filtration Rate > 60.0, Calcium Level 7.1L, Total Bilirubin 0.5, Aspartate Amino Transf (AST/SGOT) 30, Alanine Aminotransferase (ALT/SGPT) 31, Alkaline Phosphatase 97, Total Protein 5.4L, Albumin 2.6L, Albumin/Globulin Ratio 0.9L CBC/BMP Laboratory Tests 05/18/20 16:30 05/18/20 23:46 05/19/20 07:36 IZABELA OROPEZA DO May 19, 2020 09:46
[2020-05-19] MEDS ORDERED: NIFEdipine 30 MG XL TAB PO ONE (11:45)
--- NOTE | 2020-05-19 13:24 | CR.PDOC ---
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 She developed severe preeclampsia after the delivery of the baby on 05/18/20 with hypertension and was noted to be hypokalemic. She was started on Magnesium as per Channel Specialist. She has continued to be hypokalemic so Hospitalist has been consulted. Patient denied any cramps of any weakness, denied and vomiting or diarrhea. She says never had any problems with K before. ALLERGIES: Please see below. HOME MEDICATIONS: Please see below. PMH: Hypothyroidism. Anxiety. Posttraumatic stress disorder (PTSD). Low back pain. H/o SI in with inpatient psych admission PAST SURGICAL HISTORY: [place] teeth extraction. Hysteroscopy CS on 05/17/20 FAMILY HISTORY: Discussed with the patient no family history. SOCIAL HISTORY: non smoker, no drug use, rarely alcohol use. REVIEW OF SYSTEMS: All 11 review of systems are negative except those in HPI. PHYSICAL EXAMINATION: VITAL SIGNS: Please see below. GENERAL APPEARANCE: sitting up in bed in no distress HEENT: Normocephalic atraumatic, MMM, anicteric eyes. RESPIRATORY: Bilateral vesicular breath sounds , no added sounds CARDIOVASCULAR: Normal S1, S2, regular, normal rate no rub , murmur or gallop ABDOMEN: soft mildly tender in the surgical site, bowel sounds present EXTREMITIES: 1+ pitting edema NEUROLOGICAL: No focal neurodeficits PSYCHIATRIC: Awake, alert oriented x 3 LABORATORY DATA: Please see below. ASSESSMENT/PLAN: Hypokalemia: Will give oral supplements and add K to IVF. Recheck K in the pm and tomorrow AM. I suspect she will probably need about 100 meq of k to raise to 4.0 range. Preeclampsia : On Magnesium as per protocol. BP in 140s/80s range. also started on Nifedipine. Management as per OBS. Hypothyroid: On synthroid DVT ppx: in place with lovenox. Vital Signs/I&O Vital Signs Date Time Temp Pulse Resp B/P (MAP) Pulse Ox O2 Delivery O2 Flow Rate FiO2 05/19/20 11:50 87 18 141/89 (106) 05/19/20 07:59 Room Air 05/19/20 07:45 97.4 05/18/20 18:00 99 I&O- Last 24 Hours up to 6 AM 05/19/20 06:00 Intake Total 8279.7 ml Output Total 9000 ml Balance -720.3 ml Laboratory Data Labs 24H Laboratory Tests 2 05/18/20 16:30: Nucleated Red Blood Cells % (auto) 0.0, Anion Gap 8, Glomerular Filtration Rate > 60.0, Calcium Level 8.8, Total Bilirubin 0.3, Aspartate Amino Transf (AST/SGOT) 34, Alanine Aminotransferase (ALT/SGPT) 30, Alkaline Phosphatase 87, Total Protein 4.8L, Albumin 2.2L, Albumin/Globulin Ratio 0.8L 05/18/20 23:46: Nucleated Red Blood Cells % (auto) 0.0, Anion Gap 8, Glomerular Filtration Rate > 60.0, Calcium Level 7.8L, Total Bilirubin 0.5#, Aspartate Amino Transf (AST/SGOT) 32, Alanine Aminotransferase (ALT/SGPT) 29, Alkaline Phosphatase 96, Total Protein 6.0#L, Albumin 2.5L, Albumin/Globulin Ratio 0.7L 05/19/20 07:36: Nucleated Red Blood Cells % (auto) 0.0, Anion Gap 9, Glomerular Filtration Rate > 60.0, Calcium Level 7.1L, Total Bilirubin 0.5, Aspartate Amino Transf (AST/SGOT) 30, Alanine Aminotransferase (ALT/SGPT) 31, Alkaline Phosphatase 97, Total Protein 5.4L, Albumin 2.6L, Albumin/Globulin Ratio 0.9L CBC/BMP Laboratory Tests 05/18/20 16:30 05/18/20 23:46 05/19/20 07:36 Allergies Coded Allergies: No Known Allergies (Unverified , 05/16/20) Home Medications Scheduled Levothyroxine Sodium (Levothyroxine Sodium) 100 Mcg Tablet, 100 MCG PO DAILY, (Reported) No.137/Iron/Folic Acd ( Vitamin Tablet) 1 Each Tablet, 1 TAB PO DAILY, (Reported) GUILLERMO GEORGE MD May 19, 2020 13:24
[2020-05-19] MEDS: POTASSIUM CHLORIDE INJ 40 MEQ in LR 1,000 ML IV SCH (14:53)
--- NOTE | 2020-05-19 17:52 | IPNPDOC ---
Progress Note Date of Service: May 19, 2020 Day#: 2 Progress Note SUBJECT: Ms. Manning is a 24yo POD2 s/p PLTCD at term with pre- eclampsia with severe features currently on Mg and with hypokelamia resistant to KCl IV/PO repletion regimen overnight. She had a severe range BP this morning and her nifedipine XR was increased to 60mg/d, she now has good BP control and is normotensive to mild range. The patient denied n/v/d, cp, sob, chin, visual changes, RUQ pain, f/c, heavy vaginal bleeding, or urinary symptoms. She is without issue and her pain is well controlled. APC - pre-eclampsia with severe features - hypothyroidism on 100mcg synthroid - depression/anxiety (history of SI) OBJECTIVE: VITAL SIGNS: per above, other than BP WNL Alert and oriented times three. Breath sounds clear to auscultation. Heart rate: Regular rate and rhythm, no murmurs, rubs or gallops. Abdomen: Fundus firm at U-2. Soft, NTTP. Pfannenstiel incision covered with dressing, no progression of strike through [Minimal] lochia. Extremities: BL LE with +1 pitting edema, UE/LE with hyperreflexia, no clonus, neg homans ASSESSMENT: SUBJECT: Ms. Manning is a 24yo POD2 s/p PLTCD at term with pre-eclampsia with severe features currently on Mg and with hypokelamia resistant to KCl IV/PO repletion regimen overnight. Internal medicine was consulted to assist with K repletion and they have ordered an IV/PO K repletion regimen with a repeat K this evening and in the morning. Her nifedipine XR was increased to 60mg/d and she now has BP control to normotensive and mild range. She is diuresing well and her hyperreflexia has resolved. She denied symptoms pre-eclampsia. She has normal LFT/Cr/PLT this morning. PLAN: - discontinue Mg, plan to continue to monitor BP for 24h off Mg - will provide IV antihypertensives for persistent severe range BPs - regular diet - ambulate as tolerated - appreciate recommendations for management of hypokalemia, will continue recommended repletion regimen and follow K via labs this evening and in the morning - CBC can be discontinued as BPs now stable and no prior PLT abnormalities - continue synthroid 100mcg/d for hypothyroidism - continue current pain control regimen - continue lovenox 40mg/d for DVT prophylaxis (risk factors - obesity, post- operative, pre-eclampsa) - continue nifedipine XR 60mg/d for BP control VS, I&O, 24H, Fishbone Vital Signs/I&O Vital Signs Date Time Temp Pulse Resp B/P (MAP) Pulse Ox O2 Delivery O2 Flow Rate FiO2 05/19/20 16:50 95 18 112/73 (86) 05/19/20 07:59 Room Air 05/19/20 07:45 97.4 05/18/20 18:00 99 I&O- Last 24 Hours up to 6 AM 05/19/20 06:00 Intake Total 8279.7 ml Output Total 9000 ml Balance -720.3 ml Laboratory Data 24H LABS Laboratory Tests 2 05/18/20 23:46: Nucleated Red Blood Cells % (auto) 0.0, Anion Gap 8, Glomerular Filtration Rate > 60.0, Calcium Level 7.8L, Total Bilirubin 0.5#, Aspartate Amino Transf (AST/SGOT) 32, Alanine Aminotransferase (ALT/SGPT) 29, Alkaline Phosphatase 96, Total Protein 6.0#L, Albumin 2.5L, Albumin/Globulin Ratio 0.7L 05/19/20 07:36: Nucleated Red Blood Cells % (auto) 0.0, Anion Gap 9, Glomerular Filtration Rate > 60.0, Calcium Level 7.1L, Total Bilirubin 0.5, Aspartate Amino Transf (AST/SGOT) 30, Alanine Aminotransferase (ALT/SGPT) 31, Alkaline Phosphatase 97, Total Protein 5.4L, Albumin 2.6L, Albumin/Globulin Ratio 0.9L CBC/BMP Laboratory Tests 05/18/20 23:46 05/19/20 07:36 IZABELA OROPEZA DO May 19, 2020 17:52
[2020-05-19 19:07] LABS: BLOOD UREA NITROGEN 3 MG/DL (7-18); CARBON DIOXIDE LEVEL 26 MEQ/L (21-32); CHLORIDE LEVEL 105 MEQ/L (98-107); CREATININE FOR GFR 0.45 MG/DL (0.55-1.30); GLOMERULAR FILTRATION RATE > 60.0 (>60); GLUCOSE, FASTING 72 MG/DL (70-100); POTASSIUM SERUM 3.6 MEQ/L (3.5-5.1); SODIUM LEVEL 140 MEQ/L (136-145)
[2020-05-19] MEDS ORDERED: POTASSIUM CHLORIDE 10 MEQ SR TABLET PO SCH (21:00)
[2020-05-19] MEDS: ENOXAPARIN 40MG/0.4ML SYRINGE (J1650 PER 10MG) SC SCH (22:53)
[2020-05-20] MEDS: IBUPROFEN 800 MG TAB PO SCH ×3 (01:47→17:59)
[2020-05-20 01:50] VITALS: BP 130/87
[2020-05-20] MEDS: POTASSIUM CHLORIDE INJ 40 MEQ in LR 1,000 ML IV SCH (05:27)
[2020-05-20] MEDS: LEVOTHYROXINE 100MCG TABLET (0.1MG) PO SCH (05:48)
[2020-05-20 06:00] VITALS: BP 138/90
--- NOTE | 2020-05-20 06:54 | IPNPDOC ---
Progress Note Date of Service: May 20, 2020 Day#: 3 Progress Note SUBJECT: Ms. Manning is a 24yo POD3 s/p PLTCD at term with pre- eclampsia with severe features s/p 24h Mg off last night at 1800 and with hypokelamia requiring repletion regimen guided by IM, now resolved. She is currently on nifedipine XR 60mg/d, she now has good BP control and is normotensive to mild range. The patient denied n/v/d, cp, sob, chin, visual changes, RUQ pain, f/c, heavy vaginal bleeding, or urinary symptoms. She is without issue and her pain is well controlled. APC - pre-eclampsia with severe features - hypothyroidism on 100mcg synthroid - depression/anxiety (history of SI) OBJECTIVE: VITAL SIGNS: per above, other than BP WNL Alert and oriented times three. Breath sounds clear to auscultation. Heart rate: Regular rate and rhythm, no murmurs, rubs or gallops. Abdomen: Fundus firm at U-2. Soft, NTTP. Pfannenstiel incision covered with dressing, new strikethrough on left side of incision approx 3x2cm [Minimal] lochia. Extremities: BL LE with +1 pitting edema, normal DTR, no clonus, neg homans ASSESSMENT: SUBJECT: mary Manning is a 24yo POD3 s/p PLTCD at term with pre-eclampsia with severe features s/p 24h Mg off last night at 1800 and with hypokelamia requiring repletion regimen guided by IM, now resolved. She is currently on nifedipine XR 60mg/d, she now has good BP control and is normotensive to mild range. She is diuresing well and her hyperreflexia has resolved. She denied symptoms pre-eclampsia. She has had persistently normal pre-eclampsia labs. She is has been tachycardic this morning, but it seems to be resolving spontaneously. Will order a CBC to ensure H/H is stable. Abdomen is benign and her UOP is adequate. She has new strikethrough on her dressing this morning, will maris borders and monitor. PLAN: - plan to continue to monitor BP for 24h off Mg (1800 tonight), plan for BP check in clinic 3d post-discharge - will provide IV antihypertensives for persistent severe range BPs PRN - continue to monitor dressing for progression of strikethrough - regular diet - ambulate as tolerated - CBC ordered for tachycardia this morning - continue synthroid 100mcg/d for hypothyroidism - continue current pain control regimen - continue lovenox 40mg/d for DVT prophylaxis (risk factors - obesity, post- operative, pre-eclampsa) - continue nifedipine XR 60mg/d for BP control for 6 weeks, reassess BP at 6wk PP visit - discussed control, patient desires paragurd in 6 weeks - educated on si/sx of pre-eclampsia and provided with strict return precautions VS, I&O, 24H, Fishbone Vital Signs/I&O Vital Signs Date Time Temp Pulse Resp B/P (MAP) Pulse Ox O2 Delivery O2 Flow Rate FiO2 05/20/20 06:00 97.3 100 18 138/90 (106) 05/20/20 01:50 Room Air 05/18/20 18:00 99 I&O- Last 24 Hours up to 6 AM 05/20/20 06:00 Intake Total 4793.7 ml Output Total 8200 ml Balance -3406.3 ml Laboratory Data 24H LABS Laboratory Tests 2 05/19/20 07:36: Nucleated Red Blood Cells % (auto) 0.0, Anion Gap 9, Glomerular Filtration Rate > 60.0, Calcium Level 7.1L, Total Bilirubin 0.5, Aspartate Amino Transf (AST/SGOT) 30, Alanine Aminotransferase (ALT/SGPT) 31, Alkaline Phosphatase 97, Total Protein 5.4L, Albumin 2.6L, Albumin/Globulin Ratio 0.9L 05/19/20 18:00: Anion Gap 9, Glomerular Filtration Rate > 60.0, Calcium Level 7.0L CBC/BMP Laboratory Tests 05/19/20 07:36 05/19/20 18:00 ZIABELA OROPEZA DO May 20, 2020 06:54
[2020-05-20] MEDS ORDERED: PERCOCET PO (07:00)
[2020-05-20] MEDS ORDERED: DOCU100C16 PO (07:00)
[2020-05-20] MEDS ORDERED: IBUP80TA PO (07:00)
[2020-05-20 07:30] LABS: HEMATOCRIT 33.8 % (36.0-47.0); HEMOGLOBIN 11.7 g/dl (12.0-15.5); MEAN CORPUSCULAR HEMOGLOBIN 31.8 pg (27.0-33.0); MEAN CORPUSCULAR HGB CONC 34.6 g/dl (32.0-36.5); MEAN CORPUSCULAR VOLUME 91.8 fl (80.0-96.0); PLATELET COUNT, AUTOMATED 265 10^3/uL (150-450); RED BLOOD COUNT 3.68 10^6/uL (4.00-5.40)
[2020-05-20 07:44] LABS: BLOOD UREA NITROGEN 6 MG/DL (7-18); CALCIUM LEVEL 7.3 MG/DL (8.5-10.1); CARBON DIOXIDE LEVEL 26 MEQ/L (21-32); CHLORIDE LEVEL 104 MEQ/L (98-107); CREATININE FOR GFR 0.46 MG/DL (0.55-1.30); GLOMERULAR FILTRATION RATE > 60.0 (>60); GLUCOSE, FASTING 73 MG/DL (70-100); POTASSIUM SERUM 3.3 MEQ/L (3.5-5.1); SODIUM LEVEL 137 MEQ/L (136-145)
[2020-05-20] MEDS: DOCUSATE SODIUM 100 MG CAP PO SCH ×2 (09:51→20:48)
[2020-05-20] MEDS: PRENATAL VITAMINS CHEWABLE TABLET PO SCH (09:51)
[2020-05-20] MEDS: NIFEdipine 30 MG XL TAB PO SCH (09:53)
[2020-05-20 10:00] VITALS: BP 136/79
[2020-05-20] MEDS ORDERED: POTASSIUM CHLORIDE 10 MEQ SR TABLET PO ONE ×2 (13:00→15:00)
[2020-05-20] MEDS: PERCOCET 5MG/325MG TAB PO PRN ×3 (14:01→20:48)
[2020-05-20 18:00] VITALS: BP 134/76
[2020-05-20] MEDS: ENOXAPARIN 40MG/0.4ML SYRINGE (J1650 PER 10MG) SC SCH (20:48)
[2020-05-21] MEDS: IBUPROFEN 800 MG TAB PO SCH ×2 (01:43→09:54)
[2020-05-21 06:00] VITALS: BP 130/81
[2020-05-21] MEDS: LEVOTHYROXINE 100MCG TABLET (0.1MG) PO SCH (06:21)
[2020-05-21] MEDS: DOCUSATE SODIUM 100 MG CAP PO SCH (07:31)
[2020-05-21] MEDS: PRENATAL VITAMINS CHEWABLE TABLET PO SCH (07:31)
[2020-05-21] MEDS: PERCOCET 5MG/325MG TAB PO PRN (07:32)
[2020-05-21 07:33] VITALS: BP 134/86
[2020-05-21] MEDS: NIFEdipine 30 MG XL TAB PO SCH (07:33)
--- NOTE | 2020-05-21 08:18 | IPNPDOC ---
Progress Note Date of Service: May 21, 2020 Day#: 4 Progress Note SUBJECT: Jenifer is a 24yo POD#4 s/p PLTCS for arrest of dilation c/b development of preeclampsia with severe features on POD#1. She reports feeling well. Denies SINGH, chest pain, SOB, visual changes, RUQ pain. Reports her incisional pain is well-controlled on oral pain meds. She is voiding spontaneously. She is tolerating a regular diet. She is working on . OBJECTIVE: VITAL SIGNS: Normotensive to mild-ranging in the last 24hrs, afebrile. Alert and oriented times three. In NAD. RESP: No exaggerated respiratory effort appreciated CARDS: well-perfused Abdomen: Fundus firm at U-2. Soft, NTTP. Incision: c/d/i with dressing in place Minimal lochia. ASSESSMENT: 24yo POD#4 s/p PLTCS for arrest of dilation c/b development of preeclampsia with severe features on POD#1 recieving Magnesium therapy for 24hrs. Her post-operative course was complicated by hypokalemia and significant diuresis requiring significant repletion of K+. She was started on adalat 60mg PO which has controlled her BP for last 24hrs. PLAN: 1. Discharge to home today. 2. Continue current po pain mgmt 3. Encourage breast feeding and ambulation. 4. Adalat for BP control 5. Patient to f/u in 1 week for BP check at [facility] 6. Discussed return precautions at length. VS, I&O, 24H, Fishbone Vital Signs/I&O Vital Signs Date Time Temp Pulse Resp B/P (MAP) Pulse Ox O2 Delivery O2 Flow Rate FiO2 05/20/20 22:33 16 05/20/20 20:48 Room Air 05/20/20 18:00 98.2 96 134/76 (95) 98 I&O- Last 24 Hours up to 6 AM 05/21/20 06:00 Intake Total 562 ml Balance 562 ml Laboratory Data 24H LABS Laboratory Tests 2 05/20/20 06:46: Nucleated Red Blood Cells % (auto) 0.0, Anion Gap 7L, Glomerular Filtration Rate > 60.0, Calcium Level 7.3L CBC/BMP Laboratory Tests 05/20/20 06:46 ZIA KING DO May 21, 2020 03:05
[2020-05-21] MEDS ORDERED: POTA20TA6 PO (09:42)
--- NOTE | 2020-05-21 09:44 | IPNPDOC ---
Date Seen The patient was seen on 05/21/20. Progress Note SUBJECTIVE: Patient seen this morning. Doing well, no acute events overnight. Denies muscle cramps, palpitations, chest pain, n/v/d. Hospitalist service was consulted for management of hypokalemia. OBJECTIVE PHYSICAL EXAMINATION: not performed, patient leaving, prepared for DC LABORATORY DATA, IMAGING STUDIES, MICROBIOLOGY: Please see below. 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 She developed severe preeclampsia after the delivery of the baby on 05/18/20 with hypertension and was noted to be hypokalemic. She was started on Magnesium as per Custodial Officer. Continued to be hypokalemic, hospitalist was consulted. PROBLEMS: Hypokalemia: no labs available today. Received 80 meq KCL PO on 05/20/20. Last lab K+ 3.3 on 05/20/20. DC home with 20 meq PO Daily for 14 days, with instructions to repeat BMP at next OB/PCP follow up. Preeclampsia : treated with magnesium, nifedipine as per protocol. OB primary Hypothyroid: On synthroid DVT ppx: in place with lovenox. VS, I&O, 24H, Fishbone Vital Signs/I&O Vital Signs Date Time Temp Pulse Resp B/P (MAP) Pulse Ox O2 Delivery O2 Flow Rate FiO2 05/21/20 08:13 18 05/21/20 07:33 134/86 05/21/20 06:00 97.8 96 05/20/20 20:48 Room Air 05/20/20 18:00 98 I&O- Last 24 Hours up to 6 AM 05/21/20 06:00 Intake Total 562 ml Balance 562 ml LUTHER FOSTER MD May 21, 2020 09:44
== END 2020-05-21 10:41 | disposition home or self-care (01) | DRG 773 ==
LOC: M LDO 08:10 → M LDI 08:51 → M OBS 05-17 09:10 → M LDI 05-18 19:00 → M OBS 05-19 20:08
PROC: 10907ZC Drainage of Amniotic Fluid, Therapeutic from Products of Conception, Via Natural or Artificial Opening (ICD-10-PCS; 2020-05-16)
PROC: 10D00Z1 Extraction of Products of Conception, Low, Open Approach (ICD-10-PCS; principal; 2020-05-17 06:55)
DX: O62.0 Primary inadequate contractions (principal); Z37.0 Single live birth; O65.4 Obstructed labor due to fetopelvic disproportion, unspecified; E03.9 Hypothyroidism, unspecified; O99.284 Endocrine, nutritional and metabolic diseases complicating childbirth; Z3A.38 38 weeks gestation of pregnancy; O14.15 Severe pre-eclampsia, complicating the puerperium; E87.6 Hypokalemia; Z79.899 Other long term (current) drug therapy